=== PATIENT | female | born 1980 | race Caucasian/White ===

== ENCOUNTER 2016-12-17 04:34 | Inpatient (IN) | payer BC ==
[~2016-12-17] VITALS: Ht 193 cm; Wt 95.0 kg
[2016-12-17] VITALS (36 sets, daily range): BP systolic 89–130; BP diastolic 52–96; PULSE 63–164; TEMP 97.7–98
[2016-12-17] MEDS ORDERED: PRENATAL PO (05:15)
[2016-12-17 08:18] LABS: BASO # 0.1 (0.0-0.2); BASO % 0.4 % (0.0-2.0); EOS # 0.1 (0.0-0.7); EOS % 0.5 % (0-4.0); GRAN # 9.4 (1.4-6.5); GRAN % 74.6 % (42.2-75.2); HEMATOCRIT 36.3 % (37.0-47.0); HEMOGLOBIN 12.5 g/dl (12.5-16.0); MEAN CELL VOLUME 89 fl (80.0-100.0); MEAN CORPUSCULAR HEMOGLOBIN 31 pg (27.0-31.0); MEAN CORPUSCULAR HGB CONC 34 g/dl (33.0-37.0); MEAN PLATELET VOLUME 10.8 fl (7.4-10.4); MONO % 7.5 % (1.7-9.3); PLATELET COUNT 239 K/mm3 (130-400); REDCELL DISTRIBUTION WIDTH-CV 12.4 % (11.5-14.5); WHITE BLOOD COUNT 12.6 K/mm3 (4.8-10.8)
[2016-12-18 03:30] VITALS: BP 112/68; PULSE 60; TEMP 97.7
[2016-12-18 07:25] VITALS: BP 90/62; PULSE 82; TEMP 98.1
[2016-12-18 16:15] VITALS: BP 90/64; PULSE 72; TEMP 98.1
[2016-12-18 18:35] VITALS: BP 107/63; PULSE 68; TEMP 98
[2016-12-19 06:48] VITALS: BP 116/70; PULSE 66; TEMP 97.9
[2016-12-19] MEDS ORDERED: PERCOCET 325 MG1 TA2 PO (08:50)
[2016-12-19] MEDS ORDERED: IBU800 M1 PO (08:50)
== END 2016-12-19 14:15 | disposition home or self-care (01) | DRG 775 ==
LOC: LDRO 04:34 → LDR 07:15 → OB 17:40 → LDRO 12-21 15:54
PROVIDERS: Student in an Organized Health Care Education/Training Program
PROC: 10E0XZZ Delivery of Products of Conception, External Approach (ICD-10-PCS; principal; 2016-12-17)
PROC: 0KQM0ZZ Repair Perineum Muscle, Open Approach (ICD-10-PCS; 2016-12-17)
PROC: 0TQD0ZZ Repair Urethra, Open Approach (ICD-10-PCS; 2016-12-17)
DX: O26.843 Uterine size-date discrepancy, third trimester (principal); O76 Abnormality in fetal heart rate and rhythm complicating labor and delivery; O70.1 Second degree perineal laceration during delivery; O71.5 Other obstetric injury to pelvic organs; Z3A.39 39 weeks gestation of pregnancy; Z37.0 Single live birth; O09.513 Supervision of elderly primigravida, third trimester
CPT/HCPCS: J2590; J7120